=== PATIENT | female | born 1955 | race Caucasian/White ===

== ENCOUNTER 2017-03-24 21:15 | Emergency (ER) | payer OTHER ==
--- NOTE | ~2017-03-24 | US85 ---
[facility] A Service of [facility] [place] RADIOLOGY TEXT RESULTS PATIENT: EZEKIEL MONTANEZ LOCATION: RAMIREZ : 59 UNIT #: [id number] AGE: [address]: Gilles Mallory MD SEX: F ORDER DR: [id number] [facility] [address] [facility]. [place], [place] [address] [id number] MR#: [id number] #: [id number] NAME: EZEKIEL MONTANEZ : 1955 SEX: F STUDY DATE/TIME: 03/24/2017 22:23 UNIT: RAMIREZ ROOM: STUDY DESCRIPTION: [facility] [employer] Attending Physician: Gilles Mallory M.D. Ordering Physician: Gilles Mallory M.D. Primary Care Physician: Fly Plummer M.D. MEDICAL IMAGING REPORT This report is preliminary unless electronic signature is present EXAM Unilateral left lower extremity venous Doppler 03/24/2017 HISTORY Two day history of left leg pain and swelling TECHNIQUE Venous ultrasound examination of the left lower extremity was performed using grayscale, spectral Doppler and color flow Doppler imaging. FINDINGS The examination is negative. There is no evidence of left lower extremity deep venous thrombus from the groin to the lower calf. Visualized greater saphenous vein is also patent. IMPRESSION Negative examination. No evidence of left lower extremity deep venous thrombosis. Dictated by... Jonathan Whyte M.D. THIS IS AN ELECTRONICALLY VERIFIED REPORT Jonathan Whyte M.D. at 04/03/2017 4:01 PM TEV/to TD: 03/25/2017 10:07 JOB #: [id number] [facility] A [place] [facility] RADIOLOGY TEXT RESULTS PATIENT: EZEKIEL MONTANEZ LOCATION: RAMIREZ : 59 UNIT #: [id number] AGE: [address]: Gilles Mallory MD SEX: F ORDER DR: MEDICAL IMAGING REPORT Page 1 of 1 COPY
[~2017-03-24 21:15] MED LIST: ASPIRIN PO; AUGMENTIN PO; BUMEX PO; CIPRO PO; CLEOCIN PO; DARVOCET-N 1001 TAB PO; DOXYCYCLINE HY100 M3 PO; FLEXERIL PO; FLEXERIL10 MG PO; GABAPENTIN600 MG PO; GLUCOPHAGE500 MG PO; GLUCOTROL XL; GLUCOTROL XL PO; KCL PO; KEFLEX500 MG PO; LANTUS100 U/ML SUBQ; LANTUS100 UNITS/ SUBQ; LASIX; LASIX20 MG PO; LIPITOR PO; LIPITOR40 MG PO; LISINOPRIL PO; LITHIUM; LITHIUM PO; LORTAB 5/500 TA1 TA1 PO; LOVAZA PO; MEDROL4 MG/DOSE- PO; METFORMIN PO; NAPROSYN500 MG PO; NORCO 10/3251 TAB PO; NORVASC; ORUDIS75 M1 PO; PATIENT'S PHARMACY; PHENERGAN25 M1 DOB; PYRIDIUM PO; PYRIDIUM100 MG PO; REGLAN PO; TRICOR PO; TYLENOL #3 PO; ULTRAM PO; VICODIN 5/1 TAB 5/50 PO; VICODIN 5/500 T1 TAB PO; VOLTAREN50 MG PO; VOLTAREN75 MG PO; ZANTAC PO
== END 2017-03-24 23:00 | disposition home or self-care (01) ==
LOC: CED 21:15
DX: L03.116 Cellulitis of left lower limb (principal); F17.200 Nicotine dependence, unspecified, uncomplicated; Z88.2 Allergy status to sulfonamides; Z88.8 Allergy status to other drugs, medicaments and biological substances
CPT/HCPCS: 93971; 96372; 99284

== ENCOUNTER 2017-06-05 18:14 | Inpatient (IN) | payer OTHER ==
[~2017-06-05] VITALS: Ht 160 cm; Wt 72.5 kg
--- NOTE | ~2017-06-05 | CO ---
Unit #: [id number] #: [id number] Patient: EZEKIEL MONTANEZ [id number] [address] [address] [id number] I MR#: [id number] NAME: EZEKIEL MONTANEZ ROOM: 221 Age: 62 Sex: F Admission Date: 06/06/2017 : 1955 Attending Physician: Franklyn Campoverde M.D. Primary Care Physician: Fly Plummer M.D. Consultation Date: 06/06/2017 CONSULTATION REPORT PRIMARY CARE PHYSICIAN Dr. Plummer. REASON FOR CONSULTATION Bloody diarrhea. HISTORY OF PRESENTING ILLNESS Ms. Montanez is a 62-year-old pleasant female. She presented with diarrhea with blood and absolute abdominal pain going on for 2 days, somewhat better today; however, the diarrhea was bloody last time. She has had some chills, but no fever. She has no similar symptoms in the past. She has had no sick contacts. She has no recent antibiotic use. Abdominal pain is somewhat improved also, which was generalized to start with. No nausea or vomiting. PAST MEDICAL HISTORY Significant for type 2 diabetes mellitus, hypertension, hyperlipidemia, status post 3-vessel CABG, chronic back pain. ALLERGIES Sulfa and codeine. MEDICATIONS At home included Lipitor, Bumex, Benadryl, Lasix, Neurontin, hydrocodone, lisinopril. FAMILY HISTORY No history of colon cancer in the family. SOCIAL HISTORY Smoker. Denies any alcohol or drug abuse. REVIEW OF SYSTEMS Complete 10-point review of systems was done, which is unremarkable other than as mentioned above. PHYSICAL EXAMINATION VITAL SIGNS: Stable. Afebrile. Temperature 98.4, pulse 102, respirations 18, blood pressure 176/78. GENERAL: No acute distress. HEENT: Pupils equal and reactive. Sclerae anicteric. Oral mucosa moist. NECK: No JVD. No lymphadenopathy. CHEST: Clear to auscultation bilaterally. CARDIOVASCULAR: Regular rate and rhythm. No murmurs. Unit #: [id number] #: [id number] Patient: EZEKIEL MONTANEZ ABDOMEN: Soft. There is mild distention. Tenderness more so on the left side. No guarding. No rebound. No organomegaly or ascites. EXTREMITIES: Without clubbing, cyanosis, or edema. NEUROLOGIC: Intact. SKIN: Warm and dry. DIAGNOSTIC STUDIES IMAGING STUDIES: CT scan of the abdomen shows mild to moderate thickening, rectosigmoid area and transverse colon. Possibility of IBD. LABORATORY RESULTS: CBC shows a white count at 10.6, hemoglobin at 12.7. Chemistries are unremarkable. ASSESSMENT AND PLAN The patient with significant abdominal pain, diarrhea with blood in the stool. CT suggest right-sided colitis possibly ischemic. Infectious etiologies cannot be ruled out. IBD is possible also. Stool studies are pending at this time. If stool studies are negative, colonoscopy to be considered for further evaluation. At this time, we will continue with antibiotics and fluids as well as symptomatic treatment for pain. Thank you, Dr. Rutherford for this interesting consult. We will follow along. Dictated by... Carolina Fitzpatrick/cami TD: 06/06/2017 20:08 JOB #: [id number] CONSULTATION REPORT Page 1 of 1 X Luis Manuel Daniels MD X CONSULTATION REPORT
--- NOTE | ~2017-06-05 | HP ---
Unit #: [id number] #: [id number] Patient: EZEKIEL MONTANEZ [id number] [address] [address] [id number] I MR#: [id number] NAME: EZEKIEL MONTANEZ ROOM: 42986 Age: 62 Sex: F Admission Date: 06/06/2017 : 1955 Attending Physician: Mihaela Rutherford M.D. Primary Care Physician: Fly Plummer M.D. HISTORY AND PHYSICAL CHIEF COMPLAINT Bloody diarrhea with colitis. HISTORY This 62-year-old female with AODM, CAD, is admitted for bloody diarrhea. The patient states that two days she developed some lightheadedness, weakness in her legs, increasing abdominal bloating and diarrhea. Yesterday the diarrhea became bloody and she felt somewhat diaphoretic. She presented to this emergency department last evening when she was given IV fluids, Zofran, Protonix, morphine and a dose of Zosyn. She had heme positive bowel stool on exam. CT scan shows colitis in the rectosigmoid, transverse colon. Patient denies eating anything out of the ordinary, travel or recent antibiotics. I believe she had a colonoscopy about five years ago, which appeared to be normal. Has been out of all of her medications for the past eight months, except for her hypoglycemics. PAST MEDICAL HISTORY 1. AODM. 2. Hyperlipidemia. 3. Hypertension. 4. CAD, status post three vessel CABG in 2006 and history of congestive heart failure. 5. Chronic low back pain. 6. Back surgery. 7. . ALLERGIES Sulfa and codeine. HOME MEDICATIONS Patient is taking two oral hypoglycemics of unknown name. She was previously taking from what I understand aspirin, Lipitor, Bumex, Benadryl, Lasix, Neurontin, hydrocodone, lisinopril, possibly potassium, possibly lithium per the ER sheet. FAMILY HISTORY Negative for colon cancer. SOCIAL HISTORY The patient lives with her . She smokes two packs per day of tobacco and does not drink alcohol. Unit #: [id number] #: [id number] Patient: EZEKIEL MONTANEZ REVIEW OF SYSTEMS Notable for abdominal bloating bloody diarrhea, diabetes, hypertension, hyperlipidemia, congestive heart failure, CAD, chronic low back pain, above mentioned surgeries. All other systems were reviewed and otherwise negative. PHYSICAL EXAMINATION GENERAL: Pleasant, mildly obese, 62-year-old female currently in no acute distress. VITAL SIGNS: Temperature 98.4, pulse 102, respirations 18, blood pressure 176/78, O2 saturation is 99% on room air. HEENT: Eyes - PERRLA. Extraocular muscles are intact. Pharynx is benign with poor dentition. Patient points to a lump over the lateral right aspect of the tongue. NECK: Supple without adenopathy or thyromegaly. CHEST: Reveals some rhonchi. CARDIAC: Normal S1 and S2 without definite murmur. ABDOMEN: Bowel sounds are present. Well healed scar mildly tender without rebound, guarding. No definite hepatosplenomegaly or masses. RECTAL: Per the ER physician. Heme positive bowel stool. EXTREMITIES: With mild edema and chronic venostasis changes. Pedal pulses are diminished. No ulcers on the feet. NEUROLOGIC: Patient is awake, alert, and oriented. Cranial nerves are intact. Equal strength throughout. DIAGNOSTIC STUDIES ADMISSION LABS: Hematocrit 40.4, white blood count is 10.9, normal platelet count. Coags normal. SMA 12, glucose is 217, alk phos 97, normal lipase and amylase. Lactic acid is 3.4 of uncertain significance. Patient does not appear to be septic or toxic. Urinalysis - specific gravity is 1.044, glucose is positive. No white cells or red cells. IMAGING STUDIES: CT scan - colitis of the rectosigmoid/transverse colon, inflammatory versus infectious. Evidence of chronic liver disease. CARDIOLOGY STUDIES: EKG - normal sinus rhythm rate 90, nonspecific ST wave abnormalities. ASSESSMENT 1. Bloody diarrhea with CT scan compatible with rectosigmoid/transverse colitis. 2. AODM. 3. CAD, status post three vessel CABG with possible history of congestive heart failure per patient versus pedal edema. 4. Essential hypertension. 5. Tobacco abuse and likely COPD. 6. Chronic low back pain. 7. Right tongue lesion. 8. Patient has been out of all her medicines for the past eight months, except for oral hypoglycemics. PLANS 1. Flagyl and Levaquin, pending stool cultures. 2. IV fluids. 3. Repeat lactic acid. 4. Sliding scale insulin. 5. Start lisinopril. Unit #: [id number] #: [id number] Patient: EZEKIEL MONTANEZ 6. GI consultation. 7. Patient needs an ENT referral as an outpatient. 8. Smoking cessation and NicoDerm patch. Dictated by Carolina Pierce/jesus TD: 06/06/2017 05:38 JOB #: [id number] HISTORY AND PHYSICAL Page 1 of 1 X Mihaela Rutherford MD X HISTORY AND PHYSICAL
--- NOTE | ~2017-06-05 | CT2 ---
[facility] A Service of [facility] RADIOLOGY TEXT RESULTS PATIENT: EZEKIEL MONTANEZ LOCATION: A 221-01 : [birth year] UNIT #: [id number] AGE: [address]: Franklyn Campoverde MD SEX: F ORDER DR: [id number] [facility] [address] [place], [place] [address] [id number] I MR#: [id number] #: [id number] NAME: EZEKIEL MONTANEZ : 1955 SEX: F STUDY DATE/TIME: 06/05/2017 22:32 UNIT: CEDOF ROOM: 09598 STUDY DESCRIPTION: CT Abd and Pelv W Cont Attending Physician: Franklyn Campoverde M.D. Ordering Physician: Bety Koch M.D. Primary Care Physician: Fly Plummer M.D. MEDICAL IMAGING REPORT This report is preliminary unless electronic signature is present EXAM CT abdomen and pelvis with contrast, 06/05/2017. HISTORY 62-year-old female in the ED complaining of a 1-day history of generalized abdomen pain with diarrhea and black colored stools. TECHNIQUE CT examination of the abdomen and pelvis with IV contrast. GI contrast was not ordered, limiting evaluation of the GI tract. This CT exam was performed with one or more of the following radiation dose reduction techniques: automatic exposure control, adjustment of mA and/or kV according to patient size, and iterative reconstruction. FINDINGS ABDOMEN FINDINGS: The exam shows kavr-[id number] long-segment wall thickening and prominent mucosal enhancement compatible with acute colitis involving the rectosigmoid colon and transverse colon. Remaining colon segments are within normal limits, and small bowel is normal in caliber and appearance, as imaged. Normal appendix. Diagnostic considerations include inflammatory bowel disease as well as infectious colitis. No evidence of abscess, bowel perforation, or bowel obstruction. Hepatomegaly and mildly lobulated hepatic contour. Correlate clinically for chronic liver disease/cirrhosis. Small benign cyst is noted in the lateral segment left hepatic lobe with a few additional tiny liver cysts elsewhere. No suspicious liver lesion is seen. There is no splenomegaly or ascites. Pancreas and kidneys are normal in size and appearance. Normal-caliber abdominal aorta. ABDOMEN FINDINGS: Uterus, ovaries, and urinary bladder are within normal limits. No inguinal hernia. Limited lung base images show mild STS. [facility] A Service of [facility] RADIOLOGY TEXT RESULTS PATIENT: EZEKIEL MONTANEZ LOCATION: C2A 221-01 : [birth year] UNIT #: [id number] AGE: [address]: Franklyn Campoverde MD SEX: F ORDER DR: infiltrate and/or atelectasis in the medial left lower lobe. IMPRESSION 1. CT findings compatible with qynf-hj-mbydquct acute colitis involving the rectosigmoid colon and transverse colon. Considerations include inflammatory bowel disease as well as infectious colitis, correlate clinically. Remaining segments of small bowel and colon are normal in caliber and appearance, as imaged. Normal appendix. 2. No evidence of abscess, bowel perforation, or bowel obstruction. 3. Hepatomegaly with lobulated hepatic contour suggesting chronic liver disease. No splenomegaly or ascites. 4. Mild infiltrate or atelectasis in the medial left lung base. Dictated by... Celestine Mcclendon M.D. THIS IS AN ELECTRONICALLY VERIFIED REPORT Celestine Mcclendon M.D. at 06/06/2017 9:45 PM AIDEW/ashvin TD: 06/06/2017 10:02 JOB #: [id number] MEDICAL IMAGING REPORT Page 1 of 1 COPY
--- NOTE | ~2017-06-05 | TH ---
Unit #: [id number] #: [id number] Patient: EZEKIEL MONTANEZ [id number] [address] [address] [id number] I MR#: [id number] NAME: EZEKIEL MONTANEZ : 1955 SEX: F STUDY DATE/TIME: 06/07/2017 UNIT: C2A ROOM: 221 STUDY DESCRIPTION: Lexiscan stress test - Nuclear Attending Physician: Franklyn Campoverde M.D. Primary Care Physician: Fly Plummer M.D. CARDIOLOGY REPORT PROCEDURE PERFORMED Lexiscan Cardiolite stress test - Nuclear portion. PROCEDURE Using technetium 99m-labeled Cardiolite, rest and stress SPECT images were obtained. Multiple SPECT images were obtained in various views, including horizontal and vertical long axis and short axis views of the left ventricle. Images were obtained by gated SPECT method. The patient was administered 11.69 mCi of Cardiolite at rest. The patient was administered 36 mCi of Cardiolite after Lexiscan infusion was completed. On the stress images, there is normal perfusion noted. The rest images show normal perfusion. Comparing the rest and stress images, there is no stress-induced ischemia noted. The left ventricular ejection fraction is calculated to be 67%. There is no focal wall motion abnormality seen. CONCLUSION 1. No stress-induced ischemia noted. 2. The left ventricular ejection fraction is calculated to be 67%. 3. There is no focal wall motion abnormality seen. 4. The left ventricular size is small. 5. Normal Lexiscan Cardiolite stress test. Dictated by... Carolina See/tashi TD: 06/07/2017 16:25 JOB #: [id number] CARDIOLOGY REPORT Page 1 of 1 X Janice Morse MD <ELECTRONICALLY SIGNED> 07/05/17 1524 CARDIOLOGY REPORT
--- NOTE | ~2017-06-05 | EKG ---
PATIENT: EZEKIEL MONTANEZ UNIT #: [id number] Ventricular Rate: 91 BPM Atrial Rate: 91 BPM P-R Interval: 138 ms QRS Duration: 88 ms Q-T Interval: 354 ms QTC Calculation(Bezet): 435 ms P [place]: 62 degrees Calculated R [place]: 58 degrees Calculated T [place]: 80 degrees Diagnosis Line: Normal sinus rhythm Diagnosis Line: Possible Left atrial enlargement Diagnosis Line: Nonspecific T wave abnormality Diagnosis Line: Abnormal ECG Diagnosis Line: When compared with ECG of 21-JUN-2015 08:03, Diagnosis Line: No significant change was found Diagnosis Line: Confirmed by QUAN KUMAR MD ([id number]) on 06/06/2017 Diagnosis Line: 7:19:26 AM INTERPRETING MD: JOSÉ ALVARADO
--- NOTE | ~2017-06-05 | TOC ---
Unit #: [id number] #: [id number] Patient: EZEKIEL MONTANEZ [id number] [address] [address] [id number] I MR#: [id number] NAME: EZEKIEL MONTANEZ ROOM: 221 Age: 62 Sex: F Admission Date: 06/06/2017 : 1955 Attending Physician: Franklyn Cmapoverde M.D. Primary Care Physician: Fly Plummer M.D. TRANSFER OF CARE SUMMARY PRIMARY DIAGNOSIS Colon cancer of the hepatic flexure with bloody diarrhea. SECONDARY DIAGNOSES 1. Diabetes mellitus type 2, uncontrolled chronically with hemoglobin A1c of 9.2. 2. Coronary artery disease with history of coronary artery bypass graft. 3. History of congestive heart failure with ejection fraction of 60-65%, chronic, controlled. 4. Right tongue lesion, new diagnosis. 5. Bipolar disorder, noncompliance with medications and followup. 6. Chronic obstructive pulmonary disease. 7. Tobacco abuse. 8. Hypertension. 9. Hyperlipidemia. 10. Anxiety. HOSPITAL COURSE Ms. Ezekiel Montanez is a 62-year-old white female who has quite a bit of difficulty caring for herself at home as far as not being able to drive to physician's appointment, failing to keep her medications in stock. She has psychiatric issues with bipolar disorder and relies on friends and neighbors who are only able to help in some limited aspects. The patient was admitted with bloody diarrhea and imaging findings on CT scan that were suggestive of colitis, was started on Flagyl and Levaquin and consultation was obtained with Dr. Daniels. The patient underwent colonoscopy and no spots of colitis were noted but there was a mass circumferential mass at the hepatic flexure. Biopsy of that is suggestive of colon cancer and CEA is also elevated, suggestive of colon cancer. The patient underwent presurgical cardiac evaluation with Dr. Morse who performed an echocardiogram and a cardiac stress test. The patient has been cleared for surgery and is going to undergo partial colectomy today. The patient has been out of all of her medications except for oral hypoglycemics at home and her hemoglobin A1c shows 9.2 suggesting that even her dialysis is poorly controlled. The patient was also noted to have a tongue lesion and an outpatient evaluation with [facility], Dr. Gianni Watson, was set up. Ultimately, patient will need refills of all of her home medications and at this time I am treating her diabetes with insulin in the hospital due to her elevated A1c. I have asked the social work specialist to see her to assist as possible with outpatient followup transport to medical appointments as well as medication assistance. Review of the patient's records from her Unit #: [id number] #: [id number] Patient: EZEKIEL MONTANEZ PCP at [facility] with Dr. Fly Plummer show that she hasn't been seen there since August of 2015. Final discharge summary will be dictated by the hospitalist taking care of the patient on the day of discharge. Dictated by... Franklyn Campoverde M.D. ASHLEY/art TD: 06/08/2017 11:02 JOB #: [id number] TRANSFER OF CARE SUMMARY Page 1 of 1 X Franklyn Campoverde MD X TRANSFER OF CARE SUMMARY
--- NOTE | ~2017-06-05 | CO ---
Unit #: [id number] #: [id number] Patient: EZEKIEL MONTANEZ [id number] [address] [address] [id number] I MR#: [id number] NAME: EZEKIEL MONTANEZ ROOM: 221 Age: 62 Sex: F Admission Date: 06/06/2017 : 1955 Attending Physician: Franklyn Campoverde M.D. Primary Care Physician: Fly Plummer M.D. Consultation Date: 06/07/2017 CONSULTATION REPORT REASON FOR CONSULTATION Preoperative evaluation. HISTORY OF PRESENT ILLNESS This is a 62-year-old white female who has known coronary artery disease for which she had coronary artery bypass graft x3 in 2006. She has risk factors for ischemic heart disease that includes hypertension, hyperlipidemia, diabetes, obesity, and nicotine abuse. She is also known to have congestive heart failure. The patient is admitted with a complaint of abdominal pain and persistent diarrhea. She is a poor historian and she has had weight loss of more than 50 pounds over the past six months. She was admitted with colitis, and questionable infectious versus ischemia. Colonoscopy revealed hepatic flexure mass that may require hemicolectomy for which cardiology was consulted for preoperative evaluation. From a cardiac standpoint the patient states that she has had intermittent left anterior chest pain and also pain in her right anterior chest that radiates into her axilla. The description and duration of her pain is vague but has been ongoing for a while. There is no alleviating or aggravating factors. She denies shortness of breath, paroxysmal nocturnal dyspnea, or orthopnea. Reports occasional leg edema. No palpitations, dizziness, or near syncope. PAST MEDICAL HISTORY 1. Coronary artery bypass graft x3 in 2006 at [facility], no details available. 2. Congestive heart failure, questionable diastolic. 3. Hypertension. 4. Hyperlipidemia. 5. Diabetes type 2. 6. Chronic back pain. 7. Bipolar disorder. 8. Active smoker. PAST SURGICAL HISTORY 1. Coronary artery bypass graft. 2. Back surgery. 3. section. SOCIAL HISTORY The patient is and was carrying for her ill . She continues to smoke at least ten cigarettes a day but previously smoked up Unit #: [id number] #: [id number] Patient: TARIK,EZEKIEL to two packs a day. She denies illicit drug and alcohol use. FAMILY HISTORY Positive for heart disease in both her father and brother who both at age 50 from a myocardial infarction. ALLERGIES Codeine and sulfa. HOME MEDICATIONS 1. Metformin 500 mg b.i.d. 2. Gabapentin 600 mg t.i.d. 3. Hydrocodone/acetaminophen 1 q.8 hours p.r.n. 4. Lipitor 10 mg daily. 5. Bumex 1 mg b.i.d. 6. [place] t.i.d. 7. Lovaza 2 g b.i.d. 8. Benadryl p.r.n. 9. Lisinopril daily. 10. Potassium chloride 1 tablet daily. 11. Furosemide 1 tablet daily. 12. Aspirin 1 tablet daily. REVIEW OF SYSTEMS CONSTITUTIONAL: Negative for fever or chills. Reports at least a 50 pounds weight loss over the last six months. No fatigue. HEENT: No headache. No visual changes. Difficulty with swallowing. Negative for dizziness. CARDIOVASCULAR: Chest pain described in HPI. Denies palpitations. No paroxysmal nocturnal dyspnea or orthopnea. No syncope or near syncope. RESPIRATORY: Negative for dyspnea, cough or hemoptysis. GASTROINTESTINAL: Positive for abdominal pain and bloody diarrhea. No constipation or melena. EXTREMITIES: Has occasional lower extremity edema. PHYSICAL EXAMINATION VITAL SIGNS: Blood pressure 150/90, heart rate 87, temperature 98.3, BMI 28. GENERAL: This is a very pleasant 62-year-old white female who is in no acute distress. NEUROLOGIC: She is awake, alert and oriented. There is no focal weakness. NECK: Trachea is midline. No thyromegaly or lymphadenopathy. No jugular venous distention. HEART: S1 and S2 heart sounds are normal. No murmurs, no rubs, no clicks. Regular rate and rhythm. LUNGS: Clear without rales, rhonchi or wheeze. ABDOMEN: Soft, nontender with bowel sounds present. Mild hepatomegaly. EXTREMITIES: With trace lower extremity edema. SKIN: Warm and dry. DIAGNOSTIC STUDIES LABORATORY STUDIES: Hemoglobin 11.7, hematocrit 35.6, platelet count 272, white count 10.1, sodium 141, potassium 3.6, BUN less than 5, creatinine 0.5, glucose 186. Troponin on admission less than 0.05. IMAGING STUDIES: CT of the abdomen and pelvis shows a mild to moderate acute colitis. Hepatomegaly. Mild infiltrate or atelectasis in the medial lung base. Unit #: [id number] #: [id number] Patient: EZEKIEL MONTANEZ CARDIOVASCULAR STUDIES: Electrocardiogram normal sinus rhythm with a rate of [address] wave abnormality. IMPRESSION 1. Abdominal pain. 2. Blood diarrhea/colitis. 3. Hepatic flexure, colon mass. 4. History of coronary artery bypass graft x3 in 2006. 5. Chronic probable diastolic heart failure. 6. Hypertension. 7. Hyperlipidemia. 8. Diabetes, type 2. 9. Nicotine abuse. PLAN 1. Cardiology was consulted for preoperative evaluation for upcoming surgery for colon mass. The patient has had no testing since heart catheterization in 2006 and has a chest pain that maybe ischemic in origin. Will undergo Lexiscan Cardiolite stress test to rule out progression of coronary artery disease. 2. 2D echocardiogram will be done to evaluate left ventricular systolic function. 3. Start on beta-alban. 4. Continue SOSA inhibitor. 5. Preoperative evaluation will be determined once stress test and echocardiogram have been completed. 6. Will follow the patient with you. Thank you for allowing us to assist with this patient's care. Dictated by... Izzy SaabPDerrekRLuis Fernando for Carolina See/jesus TD: 06/08/2017 10:30 JOB #: [id number] CONSULTATION REPORT Page 1 of 1 X Dion Collier APRN X CONSULTATION REPORT
--- NOTE | ~2017-06-05 | CO ---
Unit #: [id number] #: [id number] Patient: EZEKIEL MONTANEZ [id number] [address] [place], [place] [address] [id number] I MR#: [id number] NAME: EZEKIEL MONTANEZ ROOM: 221 Age: 62 Sex: F Admission Date: 06/06/2017 : 1955 Attending Physician: Franklyn Campoverde M.D. Primary Care Physician: [facility] Requesting Physician: Luis Manuel Daniels M.D. Consultation Date: 06/07/2017 CONSULTATION REPORT REVISED REPORT REASON FOR CONSULTATION Hepatic flexure mass. HISTORY OF PRESENT ILLNESS Thank you very much for asking us to see Ms. Montanez. She is a 62-year-old white female who was admitted with the complaint of diarrhea with blood present, as well as abdominal pain. She had a CT scan, which revealed possible colitis of the transverse and descending colon. She subsequently was evaluated by colonoscopy today by Dr. 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 Biopsies were obtained, and the area was tattooed. She presents at this time for further evaluation and treatment. PAST MEDICAL HISTORY Diabetes, hypertension, hyperlipidemia, status post 3-vessel coronary artery bypass grafting, chronic back pain and . ALLERGIES Sulfa and codeine. MEDICATIONS Please see med/rec sheet. FAMILY HISTORY No history of colon cancer. SOCIAL HISTORY No alcohol or recreational drug use. Positive tobacco user. REVIEW OF SYSTEMS Negative, except for above. IMMUNIZATION STATUS Unknown. PHYSICAL EXAMINATION GENERAL: Well-developed, well-nourished white female in no apparent distress. Awake, alert and oriented. VITAL SIGNS: Temperature 97.6, pulse 80, respirations 16, blood pressure 132/60. NECK: Supple. No thyromegaly or adenopathy. BACK: No CVA or spinous tenderness. Unit #: [id number] #: [id number] Patient: EZEKIEL MONTANEZ ABDOMEN: Soft. Moderately distended after colonoscopy. Nontender. EXTREMITIES: No calf tenderness. No erythema. DIAGNOSTIC STUDIES LABS: Laboratory studies reveal the patient to have a glucose of 186, BUN 5, creatinine 0.5. Normal liver function studies. White count is 10 with a hemoglobin of 11.7, hematocrit 35.6, MCV of 87.3. 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 This was biopsied and tattooed by Dr. Daniels of GI medicine. We have explained to the patient that we recommend resection. All the risks and benefits have been fully explained to the patient in detail, including the risks of bleeding, infection, anastomotic leak, ostomy, transfer and , as well as other risks. She understands completely and requests to proceed. Dictated by... Carolina Varela/tashi TD: 06/08/2017 07:44 JOB #: [id number] CONSULTATION REPORT Page 1 of 1 X Akash Wheatley MD X CONSULTATION REPORT
--- NOTE | ~2017-06-05 | OR ---
Unit #: [id number] #: [id number] Patient: EZEKIEL MONTANEZ [id number] [address] [address] [id number] I MR#: [id number] NAME: EZEKIEL MONTANEZ ROOM: 221 Date of Procedure: 06/07/2017 Admission Date: 06/06/2017 Surgeon: Luis Manuel Daniels M.D. : 1955 Attending Physician: Franklyn Campoverde M.D. Primary Care Physician: Fly Plummer M.D. OPERATIVE REPORT PROCEDURE PERFORMED Colonoscopy with biopsies INDICATIONS FOR PROCEDURE A 62-year-old presented with acute bloody diarrhea. CT scan suggested left-sided colitis, undergoing colonoscopy for evaluation. MEDICATIONS Monitored anesthesia. POSTOPERATIVE FINDINGS 1. Mass, semicircumferential at hepatic flexure, possible malignant, multiple biopsies taken. 2. Cecum in the ascending colon, otherwise normal. 3. Transverse colon, descending and sigmoid and rectum all appeared to be normal. No active colitis was seen. Stool samples were collected also. PLAN 1. Follow up on the pathology report. 2. May need a right hemicolectomy. DESCRIPTION OF PROCEDURE The patient was explained of the procedure, risks, and benefits along with risks and benefits of anesthesia. She was brought to the endoscopy room. Propofol anesthesia was given. Rectal exam was done, which was normal. Colonoscope was lubricated, passed up the rectum, advanced under direct vision all the way to the cecum. Cecum was identified by ileocecal valve and appendiceal orifice. Mass in the hepatic flexure as described. Multiple biopsies taken. No active colitis was seen. Mucosa was otherwise normal in transverse, descending, and sigmoid as mentioned on CT scan. I retroflexed in the rectum, internal hemorrhoids noted. Prep was poor. Some small polyps could have been missed. Gently, the scope was pulled out. She tolerated it well. Dictated by... Carolina Fitzpatrick/cami TD: 06/07/2017 12:54 JOB #: [id number] Unit #: [id number] #: [id number] Patient: EZEKIEL MONTANEZ OPERATIVE REPORT Page 1 of 1 X Luis Manuel Daniels MD OPERATIVE NOTE
--- NOTE | ~2017-06-05 | ST ---
Unit #: [id number] #: [id number] Patient: EZEKIEL MONTANEZ [id number] [address] [address] [id number] I MR#: [id number] NAME: EZEKIEL MONTANEZ : 1955 SEX: F STUDY DATE/TIME: 06/07/2017 UNIT: C2A ROOM: 221 STUDY DESCRIPTION: Lexiscan stress test Attending Physician: Franklyn Campoverde M.D. Primary Care Physician: Fly Plummer M.D. CARDIOLOGY REPORT PROCEDURE PERFORMED Lexiscan Cardiolite stress test. PROCEDURE Baseline EKG shows normal sinus rhythm with a rate of 80 beats per minute. There is nonspecific ST-T wave abnormality. Lexiscan was injected, immediately followed by Cardiolite. The patient had no complaints of chest pain, palpitations or dizziness. EKG during Lexiscan showed downsloping ST segment changes with T wave inversion in the inferolateral leads. The patient had a drop in blood pressure from 163/71 mmHg to 109/84 mmHg during the test. She did complain of nausea and vomited nonbloody emesis x1. At the end of recovery, blood pressure was elevated at 199/87 mmHg. Please correlate these results with nuclear images. Dictated by... Gisele Saab M.D. AEP/tashi TD: 06/07/2017 14:54 JOB #: [id number] CARDIOLOGY REPORT Page 1 of 1 X Dion Collier APRN CARDIOLOGY REPORT
--- NOTE | ~2017-06-05 | OR ---
Unit #: [id number] #: [id number] Patient: EZEKIEL MONTANEZ [id number] [address] [address] [id number] [place] MR#: [id number] NAME: EZEKIEL MONTANEZ ROOM: 221 Date of Procedure: 06/08/2017 Admission Date: 06/06/2017 Surgeon: Braydon Alatorre M.D. : 1955 Attending Physician: Franklyn Campoverde M.D. Primary Care Physician: Fly Plummer M.D. OPERATIVE REPORT PREOPERATIVE DIAGNOSIS Ascending colon cancer. POSTOPERATIVE DIAGNOSES Colon cancer with hepatic flexure. PROCEDURE PERFORMED Extended right hemicolectomy. [employer] INST[employer]ER Lm Ross M.D. ANESTHESIA General anesthesia. ESTIMATED BLOOD LOSS 50 mL. IV FLUIDS 1400 crystalloid. COMPLICATIONS None. INDICATIONS FOR PROCEDURE The patient is a 62-year-old lady, who presents with recent colonoscopy that shows the colon cancer biopsy proven at the hepatic flexure. DESCRIPTION OF PROCEDURE The patient was taken to the operating theater and placed in supine position. General anesthesia was induced. The abdomen was prepped and draped. A midline incision was then made. The abdominal cavity was entered without difficulty. Upon entering the abdominal cavity, I was able to palpate the lesion. This appeared to be at the hepatic flexure. I saw no evidence of metastatic disease. I thus mobilized the cecum and the right colon from its retroperitoneal attachments. I then took down the hepatic flexure with Bovie electrocautery. I took off the omentum of the transverse colon with Bovie electrocautery. I then fired a ROHAN stapler across the distal ileum. I took down the vessels down to the root of the mesentery with 0 silk sutures. I then fired a second ROHAN stapler across the ascending colon junction. The total length of colon removed was approximately 25 cm. The tumor was easily identified. It had margins Unit #: [id number] #: [id number] Patient: EZEKIEL MONTANEZ greater than 10 cm at either distance per pathology report. I then created a lnpe-if-uzjh anastomosis using a ROHAN stapler. The enterotomies were then closed with a ROHAN stapler and reinforced with 2-0 silk sutures. I closed the mesentery with the ROHAN stapler. I then irrigated thoroughly with normal saline. I placed the bowel back in anatomical position, closed with interrupted #1 Vicryl and alexandra to the skin. The patient tolerated the procedure well and sent to recovery room in good condition. Dictated by... Carolina Peñaloza/cami TD: 06/08/2017 16:59 JOB #: [id number] OPERATIVE REPORT Page 1 of 1 X Braydon Alatorre MD X PROCEDURE OPERATIVE NOTE
--- NOTE | ~2017-06-05 | CO ---
Unit #: [id number] #: [id number] Patient: EZEKIEL MONTANEZ [id number] [address] [place], [place] [address] [id number] I MR#: [id number] NAME: EZEKIEL MONTANEZ ROOM: 221 Age: 62 Sex: F Admission Date: 06/06/2017 : 1955 Attending Physician: Franklyn Campoverde M.D. Primary Care Physician: Fly Plummer M.D. Requesting Physician: Luis Manuel Daniels M.D. Consultation Date: 06/08/2017 CONSULTATION REPORT REASON FOR CONSULTATION Colon cancer of the hepatic flexure. HISTORY OF PRESENT ILLNESS Ezekiel Montanez is 62 years old with a history of type 2 diabetes mellitus, coronary artery disease with previous bypass grafting surgery and congestive heart failure. She was admitted with bloody diarrhea. She was started on antibiotics for the presumed diagnosis of diverticulitis and underwent colonoscopy. She was found to have a circumferential mass at the hepatic flexure with biopsy showing focal dysplasia. It showed (1) normal with high-grade dysplasia with focal intramucosal carcinoma and foci suspicious for invasion. Her CEA level was 8.6. Her CT scan of the abdomen and pelvis done 06/06/2017 showed a long segment wall thickening and prominent mucosal enhancement, compatible with acute colitis involving the rectosigmoid and transverse colon. There was no evidence of metastatic disease. She is scheduled to have colon resection later today. Ms. Montanez tells me that she has not had significant changes in appetite and weight and the bloody diarrhea only started prior to admission. From medical records she is a somewhat unreliable historian. Apparently she does not keep doctor appointments and has a history of bipolar disorder. PAST MEDICAL HISTORY 1. Adult onset diabetes mellitus. 2. Hyperlipidemia. 3. Hypertension. 4. Chronic low back pain. 5. Coronary artery disease with previous coronary artery bypass grafting in 2006 and history of heart failure. 6. Bipolar disorder as discussed. SOCIAL HISTORY Smokes one to two packs per day. Lives with her , who is currently in rehab. She has two other children who I suspect care, but do not live with them. FAMILY HISTORY Negative for colon cancer or polyps. ALLERGIES Sulfa and codeine. REVIEW OF SYSTEMS Fourteen point review of systems was taken. Unit #: [id number] #: [id number] Patient: EZEKIEL MONTANEZ CONSTITUTIONAL: Weight loss. Decreased appetite as discussed. EYES: Negative. ENT: Negative. CARDIOVASCULAR: Negative. RESPIRATORY: Negative. GASTROINTESTINAL: Bloody diarrhea as discussed. Abdominal pain. GENITOURINARY: Negative. NEUROLOGIC: Negative. ALLERGY/LYMPH: Negative. SKIN: Negative. PSYCHIATRIC: Bipolar disorder. PHYSICAL EXAMINATION GENERAL: She is a pleasant middle-aged woman who looks older than her stated age. Awake, alert and oriented times three. VITALS: Temperature 98.2, pulse 81, respiratory rate 16, blood pressure 127/73, O2 saturations 94% on room air. HEENT: Pupils are equal and reacting well to light. She is pale, but not icteric. NECK: Adenopathy. Hepatomegaly. LUNGS: Chest expansion symmetric. Normal breath sounds. HEART: First and second heart sounds are heard. No murmurs, gallops or rubs. ABDOMEN: Soft and nontender. Bowel sounds active. No organomegaly. EXTREMITIES: Warm with good pulses. No edema, cyanosis or clubbing. NEUROLOGIC: Awake, alert and oriented without focal deficits. PSYCHIATRIC: Normal affect. LYMPH: Negative. SKIN: Negative. DIAGNOSTIC STUDIES IMAGING: CT scan of the abdomen and pelvis was personally reviewed by me and shows a long segment of thickening of the transverse and rectosigmoid colon without any evidence of metastatic disease to the liver. LABORATORY: CBC shows white blood cell count 10.6, hemoglobin 12.3, platelets 295,000. Basic metabolic panel shows BUN less than 5, creatinine less than 0.5. CEA level is 8.6. Methane level is less than 0.1. LFTs show total protein of 5.3, albumin 2.9. ASSESSMENT Ms. Ezekiel Montanez is a 62 year old with a history of diabetes, coronary artery disease, bipolar disorder, admitted with bloody diarrhea. She was found to have a mass in the ascending colon with biopsies concerning for invasive colon cancer. She is scheduled for laparotomy later today. I discussed with her that her preoperative CEA level is elevated. However, CT scan does not show any evidence of distal metastatic disease. I discussed with her that at this time I would recommend proceeding ahead with surgery. We discussed that she may have an early stage of colon cancer, in which case no additional therapy is necessary. I discussed about the stages of colon cancer and the fact that adjuvant therapy is indicated for stage 3 colon cancer if lymph nodes are positive. Thank you for allowing me to participate in her care. Will await results of surgery and pathology. Unit #: [id number] #: [id number] Patient: EZEKIEL MONTANEZ Dictated by... Artem Plasencia M.D. VMR/gz TD: 06/10/2017 09:30 JOB #: [id number] CONSULTATION REPORT Page 1 of 1 X Artem Plasencia MD X CONSULTATION REPORT
[2017-06-05 20:23] LABS: BASOPHIL# 0.1 X10e3 (0-0.3); BASOPHIL% 0.9 % (0-2.5); EOSINOPHIL# 0.2 X10e3 (0-0.7); EOSINOPHIL% 1.4 % (0.0-7.0); HEMATOCRIT 40.4 % (35.0-45.0); HEMOGLOBIN 13.5 gm/dL (12.0-16.0); LYMPHOCYTE% 36.4 % (17.0-45.0); MEAN CELL VOLUME 86.1 FL (83-96); MEAN CORPUSCULAR HEMOGLOBIN 28.7 PG (28-34); MEAN CORPUSCULAR HGB CONC 33.4 g/dL (30-36); MONOCYTE# 0.9 X10e3 (0-1.0); MONOCYTE% 8.1 % (3.0-12.0); NEUTROPHIL# 5.8 X10e3 (1.5-7.1); NEUTROPHIL% 53.2 % (40-75); PLATELET COUNT 333 X10e3 (140-420); RED BLOOD COUNT 4.69 X10e (3.90-5.30); RED CELL DISTRIBUTION WIDTH 14.4 % (11.0-15.5); WHITE BLOOD COUNT 10.9 X10e3 (4.0-10.5)
[2017-06-05 20:35] LABS: POC - CKMB 1.3 ng/mL (0.0-7.9); POC - TROPONIN <0.05 ng/mL (<=0.05)
[2017-06-05 20:37] LABS: DIFF IND NO
[2017-06-05 20:44] LABS: INR 0.9
[2017-06-05] MEDS ORDERED: LOVAZA1 GM PO (20:47)
[2017-06-05] MEDS ORDERED: LITHIUM CARBON300 M1 PO (20:47)
[2017-06-05] MEDS ORDERED: BENADRYL ALLERG25 M1 PO (20:48)
[2017-06-05] MEDS ORDERED: LISINOPRIL10 MG PO (20:48)
[2017-06-05] MEDS ORDERED: K-DUR20 ME1 PO (20:49)
[2017-06-05] MEDS ORDERED: LASIX20 MG PO (20:50)
[2017-06-05] MEDS ORDERED: ASPIRIN81 MG PO (20:50)
[2017-06-05 20:51] LABS: ALBUMIN SERUM 3.8 g/dL (3.5-5.0); ALKALINE PHOSPHATASE 97 U/L (32-92); ALT (SGPT) 14 U/L (10-40); AMYLASE 13 U/L (0-46); AST (SGOT) 13 U/L (10-42); BILIRUBIN,TOTAL 0.3 mg/dL (0.2-2.0); BLOOD UREA NITROGEN 6 mg/dL (9-23); BUN/CREATININE RATIO 8.57; CALCIUM SERUM 9.5 mg/dL (8.4-10.2); CARBON DIOXIDE 27 mmol/L (22-31); CHLORIDE 105 mmol/L (100-111); CREATININE SERUM 0.7 mg/dL (0.6-1.4); GLOM FILT RATE Estimated 94.2 mL/min (>60); GLUCOSE FASTING 217 mg/dL (70-110); LIPASE 14 U/L (22-51); POTASSIUM 3.8 mmol/L (3.5-5.1); SODIUM 141 mmol/L (135-145)
[2017-06-05 20:52] LABS: BILIRUBIN, DIRECT <0.1 mg/dL (0.0-0.2); BILIRUBIN,INDIRECT 0.2 mg/dL (0.0-0.9)
[2017-06-05 23:29] LABS: URINE SOURCE CLEAN CATCH
[2017-06-05 23:32] LABS: URINE APPEARANCE CLEAR; URINE BILIRUBIN NEG (NEG); URINE BLOOD NEG (NEG); URINE COLOR YELLOW; URINE GLUCOSE >1000 MG/DL (NEG); URINE KETONE NEG (NEG); URINE LEUKOCYTE ESTERASE NEG (NEG); URINE NITRATE NEG (NEG); URINE PROTEIN NEG (NEG); URINE SPECIFIC GRAVITY 1.044 (1.003-1.035); URINE UROBILINOGEN 0.2 MG/DL (NEG)
[2017-06-05 23:37] LABS: CULTURE INDICATED? NO
[2017-06-05 23:59] LABS: POC - CKMB 1.1 ng/mL (0.0-7.9); POC - TROPONIN <0.05 ng/mL (<=0.05)
[2017-06-06 07:28] LABS: BASOPHIL# 0.1 X10e3 (0-0.3); BASOPHIL% 1.1 % (0-2.5); EOSINOPHIL# 0.2 X10e3 (0-0.7); EOSINOPHIL% 1.8 % (0.0-7.0); HEMATOCRIT 37.3 % (35.0-45.0); HEMOGLOBIN 12.7 gm/dL (12.0-16.0); LYMPHOCYTE# 3.5 X10e3 (1.0-3.5); LYMPHOCYTE% 33.3 % (17.0-45.0); MEAN CELL VOLUME 86.1 FL (83-96); MEAN CORPUSCULAR HEMOGLOBIN 29.3 PG (28-34); MEAN PLATELET VOLUME 8.6 FL (6.5-11.5); MONOCYTE# 0.8 X10e3 (0-1.0); MONOCYTE% 7.5 % (3.0-12.0); NEUTROPHIL% 56.3 % (40-75); PLATELET COUNT 282 X10e3 (140-420); RED BLOOD COUNT 4.33 X10e (3.90-5.30); RED CELL DISTRIBUTION WIDTH 13.9 % (11.0-15.5); WHITE BLOOD COUNT 10.6 X10e3 (4.0-10.5)
[2017-06-06 07:29] LABS: DIFF IND NO
[2017-06-06 07:58] LABS: CALCIUM SERUM 8.7 mg/dL (8.4-10.2); CARBON DIOXIDE 24 mmol/L (22-31); CHLORIDE 107 mmol/L (100-111); CREATININE SERUM 0.5 mg/dL (0.6-1.4); GLOM FILT RATE Estimated 105.2 mL/min (>60); GLUCOSE FASTING 165 mg/dL (70-110); POTASSIUM 3.4 mmol/L (3.5-5.1); SODIUM 140 mmol/L (135-145)
[2017-06-06 08:00] LABS: BLOOD UREA NITROGEN <5 mg/dL (9-23)
[2017-06-07 06:15] LABS: HEMATOCRIT 35.6 % (35.0-45.0); HEMOGLOBIN 11.7 gm/dL (12.0-16.0); MEAN CELL VOLUME 87.3 FL (83-96); MEAN CORPUSCULAR HEMOGLOBIN 28.7 PG (28-34); MEAN CORPUSCULAR HGB CONC 32.9 g/dL (30-36); MEAN PLATELET VOLUME 8.8 FL (6.5-11.5); RED BLOOD COUNT 4.08 X10e (3.90-5.30); RED CELL DISTRIBUTION WIDTH 14.5 % (11.0-15.5); WHITE BLOOD COUNT 10.1 X10e3 (4.0-10.5)
[2017-06-07 07:16] LABS: ALBUMIN SERUM 2.9 g/dL (3.5-5.0); ALKALINE PHOSPHATASE 71 U/L (32-92); ALT (SGPT) 12 U/L (10-40); AST (SGOT) 16 U/L (10-42); BILIRUBIN,TOTAL 0.3 mg/dL (0.2-2.0); CALCIUM SERUM 8.8 mg/dL (8.4-10.2); CARBON DIOXIDE 24 mmol/L (22-31); CHLORIDE 109 mmol/L (100-111); CREATININE SERUM 0.5 mg/dL (0.6-1.4); GLOM FILT RATE Estimated 105.2 mL/min (>60); GLUCOSE FASTING 186 mg/dL (70-110); POTASSIUM 3.6 mmol/L (3.5-5.1); PROTEIN TOTAL SERUM 5.3 g/dL (6.0-8.3); SODIUM 141 mmol/L (135-145)
[2017-06-07 07:18] LABS: BLOOD UREA NITROGEN <5 mg/dL (9-23)
[2017-06-08 06:21] LABS: HEMATOCRIT 37.3 % (35.0-45.0); HEMOGLOBIN 12.3 gm/dL (12.0-16.0); MEAN CELL VOLUME 87.3 FL (83-96); MEAN CORPUSCULAR HEMOGLOBIN 28.8 PG (28-34); MEAN PLATELET VOLUME 8.8 FL (6.5-11.5); RED BLOOD COUNT 4.27 X10e (3.90-5.30); RED CELL DISTRIBUTION WIDTH 14.3 % (11.0-15.5); WHITE BLOOD COUNT 10.6 X10e3 (4.0-10.5)
[2017-06-08 06:51] LABS: CK TOTAL 34 IU/L (26-140)
[2017-06-08 06:54] LABS: CARBON DIOXIDE 27 mmol/L (22-31); CHLORIDE 110 mmol/L (100-111); CREATININE SERUM 0.5 mg/dL (0.6-1.4); GLOM FILT RATE Estimated 105.2 mL/min (>60); GLUCOSE FASTING 150 mg/dL (70-110); SODIUM 143 mmol/L (135-145)
[2017-06-08 06:55] LABS: BLOOD UREA NITROGEN <5 mg/dL (9-23)
[2017-06-09 05:57] LABS: HEMATOCRIT 37.5 % (35.0-45.0); HEMOGLOBIN 12.1 gm/dL (12.0-16.0); MEAN CELL VOLUME 87.1 FL (83-96); MEAN CORPUSCULAR HEMOGLOBIN 28.1 PG (28-34); MEAN CORPUSCULAR HGB CONC 32.3 g/dL (30-36); MEAN PLATELET VOLUME 9.3 FL (6.5-11.5); RED BLOOD COUNT 4.31 X10e (3.90-5.30); RED CELL DISTRIBUTION WIDTH 14.5 % (11.0-15.5); WHITE BLOOD COUNT 15.6 X10e3 (4.0-10.5)
[2017-06-09 06:24] LABS: CALCIUM SERUM 8.9 mg/dL (8.4-10.2); CARBON DIOXIDE 27 mmol/L (22-31); CHLORIDE 106 mmol/L (100-111); CREATININE SERUM 0.5 mg/dL (0.6-1.4); GLOM FILT RATE Estimated 105.2 mL/min (>60); GLUCOSE FASTING 190 mg/dL (70-110); POTASSIUM 4.4 mmol/L (3.5-5.1); SODIUM 141 mmol/L (135-145)
[2017-06-09 06:25] LABS: BLOOD UREA NITROGEN <5 mg/dL (9-23)
[2017-06-10 06:28] LABS: HEMATOCRIT 34.1 % (35.0-45.0); HEMOGLOBIN 11.3 gm/dL (12.0-16.0); MEAN CELL VOLUME 86.2 FL (83-96); MEAN CORPUSCULAR HEMOGLOBIN 28.6 PG (28-34); MEAN CORPUSCULAR HGB CONC 33.2 g/dL (30-36); MEAN PLATELET VOLUME 9.2 FL (6.5-11.5); RED BLOOD COUNT 3.96 X10e (3.90-5.30); RED CELL DISTRIBUTION WIDTH 14.4 % (11.0-15.5); WHITE BLOOD COUNT 12.8 X10e3 (4.0-10.5)
[2017-06-10 06:57] LABS: CALCIUM SERUM 9.1 mg/dL (8.4-10.2); CARBON DIOXIDE 29 mmol/L (22-31); CHLORIDE 103 mmol/L (100-111); CREATININE SERUM 0.5 mg/dL (0.6-1.4); GLOM FILT RATE Estimated 105.2 mL/min (>60); GLUCOSE FASTING 185 mg/dL (70-110); POTASSIUM 3.3 mmol/L (3.5-5.1); SODIUM 140 mmol/L (135-145)
[2017-06-10 06:58] LABS: BLOOD UREA NITROGEN <5 mg/dL (9-23)
[2017-06-11 07:17] LABS: BASOPHIL# 0.1 X10e3 (0-0.3); BASOPHIL% 0.9 % (0-2.5); EOSINOPHIL# 0.3 X10e3 (0-0.7); EOSINOPHIL% 2.6 % (0.0-7.0); HEMOGLOBIN 10.5 gm/dL (12.0-16.0); LYMPHOCYTE% 26.8 % (17.0-45.0); MEAN CELL VOLUME 85.7 FL (83-96); MEAN CORPUSCULAR HGB CONC 33.8 g/dL (30-36); MONOCYTE# 0.9 X10e3 (0-1.0); NEUTROPHIL# 6.8 X10e3 (1.5-7.1); NEUTROPHIL% 61.7 % (40-75); PLATELET COUNT 268 X10e3 (140-420); RED BLOOD COUNT 3.62 X10e (3.90-5.30); RED CELL DISTRIBUTION WIDTH 14.1 % (11.0-15.5); WHITE BLOOD COUNT 11.1 X10e3 (4.0-10.5)
[2017-06-11 07:26] LABS: DIFF IND NO
[2017-06-11 07:39] LABS: ALBUMIN SERUM 2.6 g/dL (3.5-5.0); ALKALINE PHOSPHATASE 59 U/L (32-92); ALT (SGPT) 12 U/L (10-40); AST (SGOT) 13 U/L (10-42); BILIRUBIN,TOTAL 0.5 mg/dL (0.2-2.0); BLOOD UREA NITROGEN <5 mg/dL (9-23); CALCIUM SERUM 8.9 mg/dL (8.4-10.2); CARBON DIOXIDE 32 mmol/L (22-31); CHLORIDE 102 mmol/L (100-111); CREATININE SERUM 0.4 mg/dL (0.6-1.4); GLOM FILT RATE Estimated 113.2 mL/min (>60); GLUCOSE FASTING 104 mg/dL (70-110); PROTEIN TOTAL SERUM 5.4 g/dL (6.0-8.3); SODIUM 140 mmol/L (135-145)
[2017-06-11 07:40] LABS: POTASSIUM 2.9 mmol/L (3.5-5.1)
[2017-06-12 06:09] LABS: HEMOGLOBIN 11.1 gm/dL (12.0-16.0); MEAN CELL VOLUME 86.7 FL (83-96); MEAN CORPUSCULAR HEMOGLOBIN 29.1 PG (28-34); MEAN CORPUSCULAR HGB CONC 33.6 g/dL (30-36); MEAN PLATELET VOLUME 8.8 FL (6.5-11.5); RED BLOOD COUNT 3.81 X10e (3.90-5.30); RED CELL DISTRIBUTION WIDTH 14.1 % (11.0-15.5)
[2017-06-12 07:02] LABS: BUN/CREATININE RATIO 12.5; CALCIUM SERUM 9.1 mg/dL (8.4-10.2); CREATININE SERUM 0.4 mg/dL (0.6-1.4); GLOM FILT RATE Estimated 113.2 mL/min (>60); MAGNESIUM 1.5 mg/dL (1.6-3.0); POTASSIUM 4.2 mmol/L (3.5-5.1)
[2017-06-12] MEDS ORDERED: NICOTINE1 EAC2 TOP (16:09)
[2017-06-12] MEDS ORDERED: B-121000 MC1 PO (16:10)
[2017-06-12] MEDS ORDERED: LOPRESSOR PO (16:10)
[2017-06-12] MEDS ORDERED: LORTAB 7.5-3251 EACH PO (16:11)
== END 2017-06-12 18:00 | disposition home or self-care (01) | DRG 330 ==
LOC: CED 18:14 → CEDOF 06-06 00:45 → C2A 06-06 00:45 → CED 06-06 00:45 → CEDOF 06-06 06:42 → C2A 06-06 11:17
PROVIDERS: Family Medicine; Internal Medicine; Internal Medicine Cardiovascular Disease; Student in an Organized Health Care Education/Training Program; Surgery
PROC: 0DBK8ZX Excision of Ascending Colon, Via Natural or Artificial Opening Endoscopic, Diagnostic (ICD-10-PCS; 2017-06-07 07:27)
PROC: B246YZZ Ultrasonography of Right and Left Heart using Other Contrast (ICD-10-PCS; 2017-06-07 07:27)
PROC: 0DTF0ZZ Resection of Right Large Intestine, Open Approach (ICD-10-PCS; principal; 2017-06-08 15:00)
DX: C18.3 Malignant neoplasm of hepatic flexure (principal); I50.32 Chronic diastolic (congestive) heart failure; I11.0 Hypertensive heart disease with heart failure; D62 Acute posthemorrhagic anemia; F31.9 Bipolar disorder, unspecified; Z88.5 Allergy status to narcotic agent; Z88.2 Allergy status to sulfonamides; E78.5 Hyperlipidemia, unspecified; I25.10 Atherosclerotic heart disease of native coronary artery without angina pectoris; Z95.1 Presence of aortocoronary bypass graft; K13.70 Unspecified lesions of oral mucosa; K64.8 Other hemorrhoids; E83.42 Hypomagnesemia; E11.65 Type 2 diabetes mellitus with hyperglycemia; F41.9 Anxiety disorder, unspecified; Z91.14 Patient's other noncompliance with medication regimen; F17.200 Nicotine dependence, unspecified, uncomplicated; Z79.84 Long term (current) use of oral hypoglycemic drugs
CPT/HCPCS: 36415; 74177; 78452; 80048; 80053; 80076; 80178; 81003; 82150; 82378; 82550; 82553; 82607; 82947; 83036; 83605; 83630; 83690; 83735; 84484; 85025; 85027; 85610; 85730; 86850; 86900; 86901; 87045; 87177; 87209; 87427; 87493; 87899; 88305; 88309; 88329; 93005; 93017; 93306; 94760; 96361; 96374; 96375; 97110; 97116; 97162; 97166; 99285; 99407; A9500; C9113; G8978-GP; G8979-GP; G8987-GO; G8988-GO; G8989-GO; J0330; J1170; J1644; J1815; J1885; J1956; J2250; J2270; J2405; J2710; J2785; J3010; J3420; J3475; Q9967